=== PATIENT | male | born 1955 | race Hispanic/Latino ===

== ENCOUNTER → 2021-03-11 | Outpatient (CLI) | payer MEDICARE | LOC: MRI 07:39 → EDBD 08:00 | PROVIDERS: ATTEND Family Medicine | DX: M54.50 Low back pain, unspecified (principal) ==

== ENCOUNTER 2025-03-20 18:29 | Emergency (ER) | payer MEDICARE ==
[~2025-03-20] VITALS: Ht 165.1 cm; Wt 82.1 kg
[~2025-03-20 18:29] MED LIST: BENICAR20 MG PO; FINASTERIDE5 MG PO; FLOMAX0.4 MG PO; HYDROCHLOROTHIA25 MG PO
[2025-03-20 20:06] LABS: BASOPHILS % 0.4 % (0.0-1.0); EOSINOPHILS % 3.1 % (0.0-6.0); LYMPHOCYTES % 18.8 % (18.0-39.1); MONOCYTES % 7.3 % (4.4-11.3); NEUTROPHILS % 70.1 % (38.7-80.0); RED CELL DISTRIBUTION WIDTH 11.9 % (11.7-14.4)
[2025-03-20 20:22] LABS: EST GLOMERULAR FILTRATION RATE 93.0 ML/MIN (>=60)
[2025-03-20 20:31] VITALS: PULSE 71; RESP 18; TEMP 98.3
[2025-03-20 20:34] LABS: CHOL/HDL RATIO 4.1 (3.9-4.7); LDL CHOLESTEROL 65.0 MG/DL (60-130)
[2025-03-20 21:58] VITALS: BP 121/58; PULSE 68; RESP 18; TEMP 98.3; O2SAT 98
== END 2025-03-20 21:30 | disposition home or self-care (01) ==
LOC: ER 20:00
DX: Z71.1 Person with feared health complaint in whom no diagnosis is made (principal); I10 Essential (primary) hypertension; E78.5 Hyperlipidemia, unspecified
CPT/HCPCS: 36415; 80053; 80061; 82948; 83690; 85025; 99284